=== PATIENT | male | born 1945 | race American Indian/Alaskan Native ===

== ENCOUNTER 2017-08-01 09:43 | Day surgery (SDC) | payer MEDICARE, OTHER ==
[2017-08-01] MEDS ORDERED: Lactated Ringer's 1,000 ML IV ONE (09:56)
[2017-08-01] MEDS ORDERED: Propofol 10 mg/ml Inj (20 ML) ONE (10:56)
[2017-08-01] MEDS ORDERED: Midazolam 2 MG/2 ML VIAL ONE (10:56)
[2017-08-01 12:04] VITALS: TEMP 97.5; O2SAT 95
[2017-08-01 12:23] VITALS: BP 110/72; PULSE 101; RESP 20
== END 2017-08-01 16:00 | disposition home or self-care (01) ==
LOC: H.ENDO 09:43
PROVIDERS: ATTEND Internal Medicine Gastroenterology
DX: Z12.11 Encounter for screening for malignant neoplasm of colon (principal); I48.91 Unspecified atrial fibrillation; I10 Essential (primary) hypertension; G40.909 Epilepsy, unspecified, not intractable, without status epilepticus; I69.351 Hemiplegia and hemiparesis following cerebral infarction affecting right dominant side
CPT/HCPCS: 43239; J2250; J2704; J7120

== ENCOUNTER 2017-08-01 12:45 | Observation (INO) | payer MEDICARE, OTHER ==
[2017-08-01] MEDS ORDERED: Albuterol-Ipratrop 3 mg / 0.5 (3 ml) UD INH STA (13:14)
--- NOTE | 2017-08-01 13:17 | ED PDOC ---
HPI: General Adult Time Seen by Provider: 08/01/17 13:15 Chief Complaint (Nursing): Cough, Cold, Congestion Chief Complaint (Provider): cough/sob History Per: Patient (72 y/o male h/o CVA with right sided weakness/HTN/ paroxysmal afib/ COPD sent from colonoscopy suite for evaluation of apparent respiratory distress noted when patient was laid flat and sedated. Patient denies any new symptoms. Notes URI today. Denies any fevers/chills. Currently feels well.) Past Medical History Reviewed: Historical Data, Nursing Documentation, Vital Signs Vital Signs: Last Vital Signs Temp 98.8 F 08/01/17 13:43 Pulse 107 H 08/01/17 12:50 Resp 20 08/01/17 12:50 BP 110/73 08/01/17 12:50 Pulse Ox 98 08/01/17 13:43 - Medical History PMH: Atrial Fibrillation, Cardia Arrhythmia, COPD, HTN, Seizures (LAST ATTACK 2015) Denies: Chronic Kidney Disease - Surgical History Surgical History: Endoscopy - Family History Family History: States: Unknown Family Hx - Immunization History Hx Tetanus Toxoid Vaccination: No Hx Influenza Vaccination: No Hx Pneumococcal Vaccination: No - Home Medications Home Medications: Ambulatory Orders Medication Instructions Recorded Folic Acid 1 mg PO DAILY 06/25/17 Gabapentin 300 mg PO BID 06/25/17 Phenytoin Sodium Extended 100 mg PO Q12 06/25/17 [Phenytoin Sodium Extended] Aspirin [Aspirin Chewable] 81 mg PO DAILY 08/01/17 Moxifloxacin [Avelox] 400 mg PO DAILY 08/01/17 Multivitamin/Iron/Folic Acid 1 tab PO DAILY 08/01/17 [Centrum Complete Multivit Tab] - Allergies Allergies/Adverse Reactions: Allergies Allergy/AdvReac Type Severity Reaction Status Date / Time No Known Allergies Allergy Verified 08/01/17 12:51 Review of Systems ROS Statement: Except As Marked, All Systems Reviewed And Found Negative ENT: Positive for: Nose Congestion Respiratory: Positive for: Cough Physical Exam - Reviewed Nursing Documentation Reviewed: Yes Vital Signs Reviewed: Yes - Physical Exam Appears: Positive for: Well, Non-toxic, No Acute Distress Head Exam: Positive for: ATRAUMATIC, NORMAL INSPECTION, NORMOCEPHALIC Skin: Positive for: Normal Color, Warm, DRY Eye Exam: Positive for: EOMI, Normal appearance, PERRL ENT: Positive for: Normal ENT Inspection, Nasal Congestion Neck: Positive for: Normal, Painless ROM Cardiovascular/Chest: Positive for: Regular Rate, Rhythm Respiratory: Positive for: Normal Breath Sounds, Rhonchi (noted left upper lobe. ) Gastrointestinal/Abdominal: Positive for: Normal Exam, Bowel Sounds, Soft Back: Positive for: Normal Inspection Extremity: Positive for: Normal ROM Neurologic/Psych: Positive for: Alert, Oriented - Laboratory Results Result Diagrams: 08/01/17 14:00 08/01/17 14:00 - ECG ECG Rhythm: Positive for: Sinus Rhythm (NSR 90BPM; NO ECTOPY; NO ACUTE CHANGES REVIEWED WITH DR. STILL) - Progress ED Course And Treament: d/w anesthesiology who states patient was observed in tachycardia/ arrhythmia associated with respiratory distress while under sedation. Colonoscopy was not completed and patient states he currently notes uri but denies feeling unwell. States he had h/o COPD and has had CT of chest this month for evaluation of bilateral pulmonary nodules. Noted additional subacute vs chronic multiple rib fractures. Patient denies any recent trauma. d/w DR. Quick, who recommends admission for observation d/w DR Wang, cardiology who does not have privileges at [facility] but will fax info to ED regarding his medical hx. cxr: no obvious infiltrate d/w hospitalist . Disposition - Clinical Impression Clinical Impression: Tachycardia, Respiratory distress - Patient ED Disposition Is Patient to be Admitted: Yes - Disposition Disposition Time: 15:47 Condition: FAIR - Pt Status Changed To: Hospital Disposition Of: Observation
[2017-08-01] MEDS ORDERED: Albuterol-Ipratrop 3 mg / 0.5 (3 ml) UD ONE (13:26)
[2017-08-01 14:12] LABS: BASO # 0.1 K/uL (0.0-0.2); BASO % 0.6 % (0.0-2.0); EOS # 0.2 K/uL (0.0-0.7); EOS % 2.2 % (0.0-4.0); HEMOGLOBIN 13.3 g/dL (12.0-18.0); LYMPH # 2.4 K/uL (1.0-4.3); LYMPH % 22.8 % (20.0-40.0); MEAN CELL VOLUME 79.8 fl (80.0-94.0); MEAN CORPUSCULAR HEMOGLOBIN 25.6 pg (27.0-31.0); MEAN PLATELET VOLUME 8.3 fl (7.2-11.7); MONO # 0.8 K/uL (0.0-0.8); MONO % 7.3 % (0.0-10.0); NEUT % 67.1 % (50.0-75.0); NRBC % 0.1 % (0.0-0.0); RBC 5.2 Mil/uL (4.40-5.90); RED CELL DISTRIBUTION WIDTH 15.3 % (11.5-14.5); WHITE BLOOD COUNT 10.4 K/uL (4.8-10.8)
[2017-08-01 14:29] LABS: ALB/GLOB RATIO 1.2 (1.0-2.1); ALBUMIN 3.9 g/dL (3.5-5.0); ALT/SGPT 33 U/L (21-72); AST/SGOT 28 U/L (17-59); BLOOD UREA NITROGEN 15 mg/dl (9-20); CALCIUM 8.9 mg/dL (8.4-10.2); GFR AFRICAN-AMERICAN > 60; GFR NON-AFRICAN AMERICAN > 60; MAGNESIUM 1.8 MG/DL (1.6-2.3)
[2017-08-01 14:46] LABS: B-TYPE NATRIURETIC PEPTIDE 149 pg/ml (0-900)
[2017-08-01 14:47] LABS: INR 0.9 (0.9-1.2); PROTHROMBIN TIME 10.3 Seconds (9.8-13.1)
--- NOTE | 2017-08-01 15:27 | RAD ---
HISTORY: cough COMPARISON: No prior. TECHNIQUE: Chest PA and lateral FINDINGS: LUNGS: No acute infiltrate is identified bilaterally. Linear atelectasis or fibrosis in the mid left lung zone laterally. PLEURA: No significant pleural effusion identified. No pneumothorax apparent. CARDIOVASCULAR: Cardiac size appears normal. Moderate aortic ectasis is noted. OSSEOUS STRUCTURES: No significant abnormalities. VISUALIZED UPPER ABDOMEN: Normal. OTHER FINDINGS: None. IMPRESSION: No acute infiltrate pleural effusion or pneumothorax identified bilaterally. Linear atelectasis or fibrosis is appreciate the mid left lung zone laterally.
--- NOTE | 2017-08-01 18:19 | CP.PCM.HP ---
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 The patient was laid flat and given anesthesia when these symptoms occurred. According to the chart there was no evidence of seizure activity. The patient does not remember these events due to the sedation. Currently the patient is complaining of cough and congestion. He was recently started on Avelox by his ENT physician. He denies any symptoms currently of tachycardia, cp, sob, n/v/d/ diaphoresis/fever/chills. Currently feels well other than his cough. He is chronically weak due to his coma but has recently been able to stand up on his own. In the ED, the patient was found to be initially tachycardic at 107. Rest of his vitals are unremarkable. Labwork is also unremarkable. Case was discussed with Dr. Mansfield, his anesthesiologist during the case, who according to ED note: "was observed in tachycardia/arrhythmia associated with respiratory distress while under sedation. Colonoscopy was not completed and patient states he currently notes uri but denies feeling unwell. Present on Admission - Present on Admission Any Indicators Present on Admission: No Review of Systems - Review of Systems Review of Systems: A 12 point review of systems was conducted and found to be negative other than what was mentioned in the HPI. Past Patient History - Infectious Disease Hx of Infectious Diseases: None - Past Medical History & Family History Past Medical History?: Yes - Past Social History Smoking Status: Heavy Smoker > 10 Cigarettes Daily - CARDIAC Hx Atrial Fibrillation: Yes Hx Cardia Arrhythmia: Yes Hx Hypertension: Yes - PULMONARY Hx Chronic Obstructive Pulmonary Disease (COPD): Yes - NEUROLOGICAL Hx Seizures: Yes (LAST ATTACK 2015) - HEENT Hx HEENT Problems: No - RENAL Hx Chronic Kidney Disease: No - ENDOCRINE/METABOLIC Hx Endocrine Disorders: No - HEMATOLOGICAL/ONCOLOGICAL Hx Blood Disorders: No - INTEGUMENTARY Hx Dermatological Problems: No - MUSCULOSKELETAL/RHEUMATOLOGICAL Hx Musculoskeletal Disorders: Yes Other/Comment: POST STROKE - GASTROINTESTINAL Hx Gastrointestinal Disorders: No - GENITOURINARY/GYNECOLOGICAL Hx Genitourinary Disorders: No - PSYCHIATRIC Hx Psychophysiologic Disorder: No Hx Emotional Abuse: No Hx Physical Abuse: No Hx Substance Use: No - SURGICAL HISTORY Hx Surgeries: Yes Other/Comment: CRANIOTOMY, TRACHEOSTOMY,PEG - ANESTHESIA Hx Anesthesia: Yes Hx Anesthesia Reactions: No Hx Malignant Hyperthermia: No Meds Allergies/Adverse Reactions: Allergies Allergy/AdvReac Type Severity Reaction Status Date / Time No Known Allergies Allergy Verified 08/01/17 12:51 Physical Exam - Additional Findings Additional findings: Physical exam: Constitutional- cooperative, awake, alert Head- NCAT, PERRL Eye- PERRL, EOMI ENT- normal exam, MMM. Neck- normal inspection, supple, no JVD Respiratory- CTAB, no wheezes rales. + LORRAINE rhonchi Cardiovascular- RRR, +S1, +S2 no MRG GI/Abdominal- normal bowel sounds, soft, no mass, no hsm Skin- warm, dry Extremities Exam- normal capillary refill, normal inspection Neurological Exam- alert, awake, oriented Psych- normal mood, normal affect Results - Vital Signs Recent Vital Signs: Last Vital Signs Temp 98.8 F 08/01/17 13:43 Pulse 102 H 08/01/17 17:52 Resp 16 08/01/17 17:52 BP 146/90 08/01/17 17:52 Pulse Ox 98 08/01/17 17:52 - Labs Result Diagrams: 08/01/17 14:00 08/01/17 14:00 Labs: Laboratory Results - last 24 hr 08/01/17 08/01/17 08/01/17 14:00 14:00 14:00 WBC 10.4 RBC 5.20 Hgb 13.3 Hct 41.5 MCV 79.8 L MCH 25.6 L MCHC 32.0 L RDW 15.3 H Plt Count 242 MPV 8.3 Neut % (Auto) 67.1 Lymph % (Auto) 22.8 [place] % (Auto) 7.3 Eos % (Auto) 2.2 Baso % (Auto) 0.6 Neut # (Auto) 7.0 Lymph # (Auto) 2.4 [place] # (Auto) 0.8 Eos # (Auto) 0.2 Baso # (Auto) 0.1 PT 10.3 INR 0.9 APTT 27.0 Sodium 140 Potassium 3.8 Chloride 105 Carbon Dioxide 22 Anion Gap 17 BUN 15 Creatinine 0.9 Est GFR ( Amer) > 60 Est GFR (Non-Af Amer) > 60 Random Glucose 106 Calcium 8.9 Magnesium 1.8 Total Bilirubin 0.7 AST 28 ALT 33 Alkaline Phosphatase 272 H Troponin I < 0.0120 NT-Pro-B Natriuret Pep 149 Total Protein 7.1 Albumin 3.9 Globulin 3.2 Albumin/Globulin Ratio 1.2 Assessment & Plan - Assessment and Plan (Free Text) Plan: Patient admitted to tele/obs after possible arrhythmia/respiratory distress before colonoscopy, after sedation given 1) Possible arrhythmia/tachycardia event before routine colonoscopy after sedation given - Place on telemetry/observation - No witnessed seizure activity during event - May have gone into rapid afib - Reaction to anesthesia? - unremarkable EKG in the ED 2) Sinusitis - Continue Avelox 400 mg po daily (ordered as outpatient by ENT) - Acute 3) Paroxysmal atrial fibrillation - Continue ASA 81 mg po daily - Not on any rate/rhythm controlling medications such as beta blockers at home - Continue to monitor for now 4) Hx seizures - Continue Phenytoin 100 mg po q 12 hours 5) Tobacco abuse - Nicotine patch 6) DVT prophylaxis - SCDs due to seizure hx/ fall risk Disp: Discharge in AM if no acute events on collateral analyst
[2017-08-01 19:59] VITALS: RESP 18
--- NOTE | 2017-08-01 20:57 | CARD ---
APPROVED REPORT EKG Measurement Heart [id number] <Conclusion> Normal sinus rhythm Normal ECG
[2017-08-02 04:42] VITALS: O2SAT 100
[2017-08-02 08:02] VITALS: BP 135/80; PULSE 69; TEMP 98.7
[2017-08-02] MEDS ORDERED: Multivitamin With Minerals Tab PO SCH (09:00)
--- NOTE | 2017-08-02 18:03 | CP.PCM.DIS ---
Provider - Provider Date of Admission: 08/01/17 15:47 Attending physician: Kyler Roberson DO Primary care physician: Dr. Blaze Quick Time Spent in preparation of Discharge (in minutes): 20 Hospital Course - Lab Results Lab Results: Most Recent Lab Values WBC 10.4 K/uL (4.8-10.8) 08/01/17 14:00 RBC 5.20 Mil/uL (4.40-5.90) 08/01/17 14:00 Hgb 13.3 g/dL (12.0-18.0) 08/01/17 14:00 Hct 41.5 % (35.0-51.0) 08/01/17 14:00 MCV 79.8 fl (80.0-94.0) L 08/01/17 14:00 MCH 25.6 pg (27.0-31.0) L 08/01/17 14:00 MCHC 32.0 g/dL (33.0-37.0) L 08/01/17 14:00 RDW 15.3 % (11.5-14.5) H 08/01/17 14:00 Plt Count 242 K/uL (130-400) 08/01/17 14:00 MPV 8.3 fl (7.2-11.7) 08/01/17 14:00 Neut % (Auto) 67.1 % (50.0-75.0) 08/01/17 14:00 Lymph % (Auto) 22.8 % (20.0-40.0) 08/01/17 14:00 [place] % (Auto) 7.3 % (0.0-10.0) 08/01/17 14:00 Eos % (Auto) 2.2 % (0.0-4.0) 08/01/17 14:00 Baso % (Auto) 0.6 % (0.0-2.0) 08/01/17 14:00 Neut # (Auto) 7.0 K/uL (1.8-7.0) 08/01/17 14:00 Lymph # (Auto) 2.4 K/uL (1.0-4.3) 08/01/17 14:00 [place] # (Auto) 0.8 K/uL (0.0-0.8) 08/01/17 14:00 Eos # (Auto) 0.2 K/uL (0.0-0.7) 08/01/17 14:00 Baso # (Auto) 0.1 K/uL (0.0-0.2) 08/01/17 14:00 PT 10.3 Seconds (9.8-13.1) 08/01/17 14:00 INR 0.9 (0.9-1.2) 08/01/17 14:00 APTT 27.0 Seconds (25.6-37.1) 08/01/17 14:00 Sodium 140 mmol/l (132-148) 08/01/17 14:00 Potassium 3.8 MMOL/L (3.6-5.0) 08/01/17 14:00 Chloride 105 mmol/L (98-107) 08/01/17 14:00 Carbon Dioxide 22 mmol/L (22-30) 08/01/17 14:00 Anion Gap 17 (10-20) 08/01/17 14:00 BUN 15 mg/dl (9-20) 08/01/17 14:00 Creatinine 0.9 mg/dl (0.8-1.5) 08/01/17 14:00 Est GFR ( Amer) > 60 08/01/17 14:00 Est GFR (Non-Af Amer) > 60 08/01/17 14:00 Random Glucose 106 mg/dL (75-110) 08/01/17 14:00 Calcium 8.9 mg/dL (8.4-10.2) 08/01/17 14:00 Magnesium 1.8 MG/DL (1.6-2.3) 08/01/17 14:00 Total Bilirubin 0.7 mg/dl (0.2-1.3) 08/01/17 14:00 AST 28 U/L (17-59) 08/01/17 14:00 ALT 33 U/L (21-72) 08/01/17 14:00 Alkaline Phosphatase 272 U/L (38-126) H 08/01/17 14:00 Troponin I < 0.0120 ng/mL (0.00-0.120) 08/01/17 14:00 NT-Pro-B Natriuret Pep 149 pg/ml (0-900) 08/01/17 14:00 Total Protein 7.1 G/DL (6.3-8.2) 08/01/17 14:00 Albumin 3.9 g/dL (3.5-5.0) 08/01/17 14:00 Globulin 3.2 gm/dL (2.2-3.9) 08/01/17 14:00 Albumin/Globulin Ratio 1.2 (1.0-2.1) 08/01/17 14:00 - Hospital Course Hospital Course: 72 yo male with PMH of CVA , intracranila bleed in 2013 s/o craniotomy and ischemic stroke in 2016 after afiv episode ,history of paroxysmal atrial fibrillation, COPD, seizure, history of coma x 4 years (woke up mid 2015, during time of his coma he had tracheostomy) who was sent from outpatient colonoscopy suite after having respiratory distress and tachycardia. The patient was laid flat and given anesthesia when these symptoms occurred. According to the chart there was no evidence of seizure activity. The patient does not remember these events due to the sedation. Colonoscopy was not performed . HR noted to be 107, SR Patient was recently started on outpatient setting on Avelox by his ENT for cough , congestion and URI He denied any tachycardia, cp, sob, n/v/d/diaphoresis/fever/chills. He was placed under observation in telemetry overnight . EKG and telemetry monitoring showed NSR , no arrythmias .Labn work up including CBC, CMP, trop all within normla range. CXR showed no active disease. He is feeling well and would like to go home. As per patient he is being followed by his PMD and a bobtailer in out patient setting ( had recently holter performed and has appointment for and Echo)and would like to follow up with them and make decisions about any change in treatment including need for anticoagulation . At present he is hemodynamically stable Will discharge patient home Follow up with his bobtailer and PMD Dr. Quick Discharge Exam - Head Exam Head Exam: ATRAUMATIC, NORMAL INSPECTION Additional comments: left temporal craniotomy - Eye Exam Eye Exam: EOMI, Normal appearance, PERRL Pupil Exam: NORMAL ACCOMODATION - ENT Exam ENT Exam: Mucous Membranes Moist, Normal Exam - Neck Exam Neck exam: Full Rom, Normal Inspection Additional comments: anterior neck old tracheostomy scar - Respiratory Exam Respiratory Exam: Clear to PA & Lateral, NORMAL BREATHING PATTERN. absent: Rales, Rhonchi, Wheezes - Cardiovascular Exam Cardiovascular Exam: REGULAR RHYTHM, RRR, +S1, +S2. absent: JVD - GI/Abdominal Exam GI & Abdominal Exam: Normal Bowel Sounds, Soft. absent: Distended, Guarding, Rebound, Tenderness - Rectal Exam Rectal Exam: Deferred - Extremities Exam Extremities exam: normal capillary refill, normal inspection, pedal pulses present Additional comments: bilateral hand flexion contractures - Back Exam Back exam: NORMAL INSPECTION - Neurological Exam Neurological exam: Alert, CN II-XII Intact, Oriented x3 - Psychiatric Exam Psychiatric exam: Normal Affect, Normal Mood - Skin Skin Exam: Dry, Normal Color, Warm Discharge Plan - Follow Up Plan Condition: STABLE Disposition: HOME/ ROUTINE Patient education suggested?: Yes Instructions: Sinus Tachycardia (DC) Additional Instructions: Follow up with PMD Blaze Quick
== END 2017-08-02 10:03 | disposition home or self-care (01) ==
LOC: H.ER 12:45 → H.ERHOLD 15:47 → H.TEL 18:26
PROVIDERS: ADMIT Internal Medicine; ATTEND Internal Medicine
DX: R00.0 Tachycardia, unspecified (principal); R06.03 Acute respiratory distress; I10 Essential (primary) hypertension; I48.0 Paroxysmal atrial fibrillation; J44.9 Chronic obstructive pulmonary disease, unspecified; Z86.73 Personal history of transient ischemic attack (TIA), and cerebral infarction without residual deficits; Z72.0 Tobacco use; J06.9 Acute upper respiratory infection, unspecified; J32.9 Chronic sinusitis, unspecified; M62.442 Contracture of muscle, left hand; M62.441 Contracture of muscle, right hand
CPT/HCPCS: 71045; 71046; 80053; 83735; 83880; 84484; 85025; 85610; 85730; 93005; 99285; G0378